=== PATIENT | female | born 1960 | race Caucasian/White ===

== ENCOUNTER 2017-06-05 00:09 | Day surgery (SDC) | payer BC ==
[~2017-06-05 00:09] MED LIST: ACET325 PO; ALPR.5 PO; B-COMPLEX WITH1 EAC1 PO; BENADRYL25 MG PO; BUSP15 PO; Desyrel50 MG; ENDOCET 2.5-321 EACH; MULVITMIND PO; ONDA4ODT; PROC10 PO; Prempro 0.3 MG/1 TAB PO; RANI150 PO; Zithromax250 MG PO
[2017-06-05 08:32] LABS: Hematocrit 33.1 % (33.0-51.0); Hemoglobin 10.8 g/dL (11.5-16.0); Mean Corpuscular HGB 26.6 pg (26.0-34.0); Mean Corpuscular HGB Conc 32.6 g/dL (31.5-36.5); Mean Corpuscular Volume 82 fL (80-100); Mean Platelet Volume 8.8 fL (9.1-12.4); Platelet Count 235 K/mm3 (150-400); RDW Coefficient Variation 15.4 % (11.7-14.2); RDW Standard Deviation 45.4 fL (35.1-46.3); Red Blood Cell Count 4.06 M/mm3 (3.80-5.20); White Blood Cell Count 3.03 K/mm3 (4.00-11.30)
[2017-06-05 08:49] LABS: Alanine Aminotransfer (ALT/SGP 14 U/L (12-78); Albumin, Blood 3.4 g/dL (3.4-5.0); Albumin/Globulin Ratio 1.2 (0.8-1.8); Alk Phos 71 U/L (50-136); Anion Gap 4 mmol/L (6-16); Aspartate Aminotrans (AST/SGOT 14 U/L (12-37); Bilirubin, Total 0.4 mg/dL (0.1-1.0); Blood Urea Nitrogen 11 mg/dL (8-24); Bun/Creatinine Ratio 18.4 (12.0-20.0); CHOL/HDL RATIO 1.9; CO2, Blood 30 mmol/L (21-32); Calcium, Blood 8.6 mg/dL (8.5-10.1); Chloride, Blood 108 mmol/L (98-108); Cholesterol 179 mg/dL (50-200); Globulin, Blood 2.9 g/dL (2.2-4.0); Glomerular Filtration Rate >60 (60-); Glucose, Blood 91 mg/dL (70-99); HDL Cholesterol 92 mg/dL (>39); LDL/HDL RATIO 0.9; Low Density Lipoprotein Chol 78 mg/dL (0-110); Potassium, Blood 4.2 mmol/L (3.5-5.5); Sodium, Blood 142 mmol/L (136-145); Total Protein, Blood 6.3 g/dL (6.4-8.2); Triglycerides 44 mg/dL (30-160); Very Low Density Lipoprot Chol 8 mg/dL (6-32)
== END 2017-06-05 08:10 | disposition home or self-care (01) ==
LOC: ATC 00:09
PROVIDERS: Family Medicine
DX: C54.1 Malignant neoplasm of endometrium (principal); Z45.2 Encounter for adjustment and management of vascular access device; D64.9 Anemia, unspecified; Z13.220 Encounter for screening for lipoid disorders; Z98.84 Bariatric surgery status; K21.9 Gastro-esophageal reflux disease without esophagitis
CPT/HCPCS: 36591; 80053; 80061; 85027; J1642

== ENCOUNTER 2017-08-25 00:20 | Day surgery (SDC) | payer BC | END 2017-08-25 09:40 | disposition home or self-care (01) | LOC: ATC 00:20 | DX: Z45.2 Encounter for adjustment and management of vascular access device (principal); C54.1 Malignant neoplasm of endometrium; Z17.0 Estrogen receptor positive status [ER+] | CPT/HCPCS: 96523; J1642 ==